=== PATIENT | female | born 1990 | race African-American/Black ===

== ENCOUNTER 2020-07-20 23:23 | Inpatient (IN) ==
[2020-07-20] MEDS ORDERED: BUTORPHANOL 2 MG/ML VIAL IV PRN (23:31)
[2020-07-20] MEDS ORDERED: ONDANSETRON 4 MG/2 ML VIAL IV PRN (23:31)
[2020-07-20] MEDS ORDERED: MEPERIDINE 50 MG/1 ML VIAL IV PRN (23:31)
[2020-07-20 23:57] LABS: Basophils % 0.4 % (0.0-0.8); Eosinophils # 0.1 10*3/uL (0.0-0.87); Eosinophils % 0.9 % (0.00-10.9); Hematocrit 35.8 VOL% (35.7-47.0); Hemoglobin 12.1 GM/DL (12.0-16.0); Immature Granulocytes % 0.4 %; Immature Granulocytes Absolute 0.03 #; Lymphocytes # 2.4 10*3/uL (1.4-4.0); Lymphocytes % 34.7 % (21.3-54.2); Mean Corpuscular HGB Conc 33.8 GM/DL (32-36); Mean Corpuscular Volume 80.4 FL (87-102); Monocytes % 6.9 % (1.7-12.7); Neutrophils % 56.7 % (38.7-73.9); Platelet Count 231 T/CUMM (130-400); Red Blood Count 4.45 MC/CUMM (3.8-5.5); Red Cell Distribution Width 13.7 % (9.3-17.3)
[2020-07-21] MEDS: LACTATED RINGERS 1,000 ML IV SCH ×3 (00:01→02:21)
[2020-07-21] MEDS ORDERED: PANTOPRAZOLE 40 MG VIAL IV ONE (00:04)
[2020-07-21] MEDS ORDERED: LACTATED RINGERS 1,000 ML IV ONE (00:04)
[2020-07-21] MEDS ORDERED: CITRIC ACID/SODIUM CITRATE 30 ML UDCUP PO ONE (00:04)
[2020-07-21 00:08] LABS: Albumin 2.6 G/DL (3.4-5.0); Bilirubin,Total 0.4 MG/DL (0.2-1.0); Calcium 8.6 MG/DL (8.5-10.1); Osmolality,Calculated 272.7 MOS/KG (273-304); Total Protein 7.4 G/DL (6.4-8.3)
[2020-07-21] MEDS ORDERED: ePHEDrine 50 MG/ML VIAL IV PRN (00:09)
[2020-07-21] MEDS ORDERED: ONDANSETRON 4 MG/2 ML VIAL IV ONE (00:09)
[2020-07-21] MEDS ORDERED: hydrOXYzine HCL 25 MG/1 ML VIAL IM PRN (00:09)
[2020-07-21] MEDS ORDERED: PROMETHAZINE 25 MG/1 ML VIAL IM ONE (00:09)
[2020-07-21] MEDS ORDERED: diphenhydrAMINE 50 MG/1 ML VIAL IV PRN ×2 (00:09)
[2020-07-21] MEDS ORDERED: NALOXONE 0.4 MG/ML VIAL IV PRN (00:09)
[2020-07-21] MEDS ORDERED: fentaNYL 2 MCG/ROPIV 0.2% EPID 100 ML EPIDURAL SCH (00:30)
[2020-07-21] MEDS ORDERED: FAMOTIDINE 20 MG/2 ML VIAL IV ONE (00:30)
[2020-07-21] MEDS: ePHEDrine 50 MG/ML VIAL IV PRN ×2 (01:55→02:18)
[2020-07-21 01:56] LABS: Bilirubin,Urine Negative (Negative); Blood, Urine Small mg/dL (Negative); Glucose,Urine (UA) Negative (Negative); Ketones,Urine Negative (Negative); Mucus,Urine Occasional /LPF (Occasional); Nitrite,Urine Negative (Negative); Protein,Urine Negative; RBC,Urine 23 /HPF (0-4); Renal Epithelial Cells,Urine Occasional /HPF (<1); Squamous Epithelial Cell,Urine Occasional /HPF (0-10); Urine Appearance CLEAR (Clear); Urine Color Yellow (Yellow); Urine Specific Gravity 1.019 (1.001-1.035); Urine Urobilinogen < 2.0 EU/DL (0.2-1.0)
[2020-07-21] MEDS: OXYTOCIN/LR 20 UNIT/1,000 ML BAG IV SCH ×2 (05:01→15:17)
[2020-07-21] MEDS ORDERED: CITRIC ACID/SODIUM CITRATE 30 ML UDCUP ONE (06:38)
[2020-07-21] MEDS ORDERED: LIDOCAINE 1% 50 ML VIAL ONE (08:32)
[2020-07-21] MEDS ORDERED: METHYLERGONOVINE 0.2 MG/1 ML AMP ONE (08:32)
[2020-07-21] MEDS ORDERED: miSOPROStoL 200 MCG TABLET ONE (08:32)
[2020-07-21] MEDS ORDERED: IBUPROFEN 800 MG TABLET PO PRN (08:47)
[2020-07-21] MEDS ORDERED: LANOLIN 50% CREAM 0.3 OZ TUBE TOP PRN (08:47)
[2020-07-21] MEDS ORDERED: OXYTOCIN/LR 20 UNIT/1,000 ML BAG IV ONE (08:47)
[2020-07-21] MEDS ORDERED: WITCH HAZEL PADS 100/JAR TOP PRN (08:47)
[2020-07-21] MEDS ORDERED: DIPH/TET/ACEL PERT BOOSTER VACCINE 0.5 ML VIAL IM ONE (08:47)
[2020-07-21] MEDS ORDERED: oxyCODONE/ACETAMINOPHEN 5-325 MG TABLET PO PRN (08:47)
[2020-07-21] MEDS ORDERED: BISACODYL 10 MG SUPP RECTAL PRN (08:47)
[2020-07-21] MEDS ORDERED: ACETAMINOPHEN 325 MG TABLET PO PRN (08:47)
[2020-07-21] MEDS ORDERED: BENZOCAINE 20%/MENTHOL 0.5% SPRAY 56 GM CAN TOP PRN (08:47)
[2020-07-21] MEDS ORDERED: ONDANSETRON 4 MG/2 ML VIAL IV PRN (08:47)
[2020-07-21] MEDS ORDERED: RHO(D) IMMUNE GLOBULIN 300 MCG SYRINGE IM ONE (08:47)
[2020-07-21] MEDS ORDERED: MEASLES/MUMPS/RUBELLA VACCINE 0.5 ML VIAL SUBCUT ONE (08:47)
[2020-07-21] MEDS ORDERED: HYDROCORTISONE 2.5% RECTAL CREAM 30 GM TUBE TOP PRN (08:47)
[2020-07-21 08:58] LABS: Cord Venous Blood HCO3 23.6 MMOL/L; Cord Venous Blood PO2 31.7 MMHG
[2020-07-21] MEDS: DOCUSATE SODIUM 100 MG CAPSULE PO SCH (20:34)
[2020-07-22] MEDS: oxyCODONE/ACETAMINOPHEN 5-325 MG TABLET PO PRN ×2 (00:48→22:14)
[2020-07-22 06:54] LABS: Basophils % 0.3 % (0.0-0.8); Eosinophils # 0.1 10*3/uL (0.0-0.87); Eosinophils % 0.8 % (0.00-10.9); Hematocrit 32.8 VOL% (35.7-47.0); Hemoglobin 10.8 GM/DL (12.0-16.0); Immature Granulocytes % 0.8 %; Immature Granulocytes Absolute 0.07 #; Lymphocytes # 2.6 10*3/uL (1.4-4.0); Lymphocytes % 29.2 % (21.3-54.2); Mean Corpuscular HGB Conc 32.9 GM/DL (32-36); Mean Corpuscular Volume 82.2 FL (87-102); Mean Platelet Volume 10.1 FL (9.6-12.0); Neutrophils % 59.9 % (38.7-73.9); Platelet Count 192 T/CUMM (130-400); Red Blood Count 3.99 MC/CUMM (3.8-5.5); Red Cell Distribution Width 13.8 % (9.3-17.3); White Blood Count 8.9 T/CUMM (4-12)
[2020-07-22] MEDS: DOCUSATE SODIUM 100 MG CAPSULE PO SCH ×2 (08:59→22:40)
[2020-07-23] MEDS: DOCUSATE SODIUM 100 MG CAPSULE PO SCH (08:52)
[2020-07-23 10:41] VITALS: BP 134/85
== END 2020-07-23 10:45 | disposition home or self-care (01) | DRG 560 ==
LOC: N.LD 23:23 → N.OB 07-21 11:52
PROVIDERS: ADMIT Obstetrics & Gynecology; ATTEND Obstetrics & Gynecology